=== PATIENT | male | born 1955 | race Caucasian/White ===

== ENCOUNTER 2017-07-11 06:59 | Outpatient (CLI) | payer BC ==
[~2017-07-11] VITALS: Ht 180.3 cm; Wt 97.7 kg
--- NOTE | ~2017-07-11 | HEMODYNAMI ---
PATIENT:CHANTEL BRIZUELA MEDICAL RECORD: [id number] : 57 LOCATION:[facility] ADMISSION DATE: 07/11/17 Generatedon:07/11/201710:46 Patient name: CHANTEL BRIZUELA Patient #: [id number] SSN: : 1955 Date of study: 07/11/2017 Page: Of Hemodynamic Procedure Report Patient Data Patient Demographics Procedure consent was obtained First Name: CHANTEL Gender: Male Last Name: CHATA : 1955 [facility] Initial: D Age: 62 year(s) Patient #: [id number] Race: Unknown Additional ID: [id number] Contact details Address: [address] [place] [address] State: [place] City: [facility] Zip code: [address] Past Medical History Allergies Allergen Reaction Date Comments Reported Other allergy 07/11/2017 Niacin, Atorvastatin. Admission Admission Data Admission Date: 07/11/2017 Admission Time: 6:59 Admit Source: Other Lab Results Lab Result Date: 07/11/2017 Lab Result Time: 8:14 Biochemistry Name Units Result Min Max BUN mg/dl 13 --(--*-)-- 7 18 Creatinine mg/dl 1.3 --(---*)-- 0.6 1.3 CBC Name Units Result Min Max Hematocrit % 39 *-(----)-- 42 54 Hemoglobin g/dl 13.2 -*(----)-- 13.5 17.5 Procedure Procedure Types Cath Procedure Diagnostic Procedure LHC [facility] w/Coronaries Sedation Charges Moderate Sedation up to 45 minutes PCI Procedure Coronary Stent Coronary Stent Initial Procedure Description Procedure Date Procedure Date: 07/11/2017 Procedure Start Time: 9:52 Procedure End Time: 10:39 Procedure Staff Name Function Chinmay St MD Performing Physician Alexsander Olguin RT Monitor Ashley Arriaga RT Scrub Nasim Hoff RN Nurse Procedure Data Cath Procedure Fluoroscopy Diagnostic fluoroscopy Total fluoroscopy Time: time: 11.5 min 11.5 min Diagnostic fluoroscopy Total fluoroscopy dose: dose: 1463 mGy 1463 mGy Contrast Material Contrast Material Type Amount (ml) Isovue 300 148 Entry Location Entry Primary Successful Side Size Upsize Upsize Entry Closure Jimenez ccessful Closure Location (Fr) 1 (Fr) 2 (Fr) Remarks Device Remarks Radial Right 6 Fr Mechanical artery Short Compression Femoral Right 5 Fr 6 Fr Exoseal artery Short Estimated blood loss: 10 ml Diagnostic catheters Device Type Used For End Catheter Placement DIAGNOSTIC Tremayne 110cm Procedure 5Fr catheter ([id number]) MULTIPACK JL 4.0 5Fr Procedure catheter MULTIPACK 3DRC 5Fr Procedure catheter MULTIPACK Pigtail 5 Fr Procedure catheter Procedure Complications No complications Procedure Medications Medication Administration Route Dosage 0.9% NaCl I.V. 100 ml/hr Oxygen etCO2 Nasal cannula 2 l/min Heparin Flush Bag added to field 2 bags (1000units/500ml NS) Lidocaine 2% added to field 20 Radial Cocktail added to field 1 syringe (Verapomil 2mg/Nitro 400mcg/Heparin 1500units) Versed I.V. 1 mg Fentanyl I.V. 50 mcg Radial Cocktail I.A. 1 syringe (Verapomil 2mg/Nitro 400mcg/Heparin 1500units) Versed I.V. 0.5 mg Fentanyl I.V. 25 mcg Heparin Bolus I.V. 9700 units Brilinta P.O. 180 mg Hemodynamics Rest HGB: 13.2 (g/dl) Heart Rate: 52 (bpm) Pressure Samples Time Site Value (mmHg) Purpose Heart Use Rate(bpm) 10:04 LV 114/15,29 Snapshot 54 10:04 AO 107/57(77) Pullback 53 10:04 LV 187/-12,150 Pullback 53 Gradients Valve Time Site 1 Site 2 Mean SEP/DFP Peak To Heart Use (mmHg) (sec/min) Peak Rate (mmHg) (bpm) Aortic 10:04 LV AO 23 24 80 53 187/-12,150 107/57(77) Calculations Valve P-P Mean Valve Index Valve Source Name Gradient Area Flow (cm2) Aortic 80 23 80 23 Snapshots Pre Cath Intra NCS Post Cath Vital Signs Time Heart Resp SPO2 etCO2 NIBP (mmHg) Rhythm Pain Sedation Rate (ipm) (%) (mmHg) Status Level (bpm) 9:48:47 49 24 99 42.6 130/75(106) NSR 0 (11) 10(A) , No pain 9:54:02 50 17 98 47.1 104/67(83) NSR 0 (11) 10(A) , No pain 9:58:35 51 16 94 40.4 99/66(89) NSR 0 (11) 10(A) , No pain 10:03:11 53 19 94 42.6 105/67(94) NSR 0 (11) 9(A) , No pain 10:07:50 52 22 94 43.4 110/68(91) NSR 0 (11) 9(A) , No pain 10:12:28 54 16 99 42.6 112/60(81) NSR 0 (11) 9(A) , No pain 10:17:07 56 24 99 41.9 98/68(83) NSR 0 (11) 9(A) , No pain 10:21:43 54 15 100 42.6 107/68(97) NSR 0 (11) 9(A) , No pain 10:26:18 54 16 100 41.1 106/70(87) NSR 0 (11) 9(A) , No pain 10:30:54 54 19 100 40.4 112/74(93) NSR 0 (11) 9(A) , No pain 10:35:33 56 15 100 41.9 123/75(99) NSR 0 (11) 10(A) , No pain Medications Time Medication Route Dose Verified Delivered Reason Not es Effectiveness by by 9:45:56 0.9% NaCl I.V. 100 Nasim Nasim Per physician ml/hr Kavya Hoff RN RN 9:46:06 Oxygen etCO2 2 l/min Nasim Nasim Per physician Nasal Shainaigan Kavya cannula RN RN 9:46:19 Heparin Flush added 2 bags Nasim Nasim used for Bag to Lorigan Lorigan procedure (1000units/500ml field LANGE RN NS) 9:46:31 Lidocaine 2% added 20ml Nasim Nasim for local to vial Lorigan Lorigan anesthetic RN RN 9:46:47 Radial Cocktail added 1 Nasim Nasim used for (Verapomil to syringe Lorigan Lorigan procedure 2mg/Nitro RN RN 400mcg/Heparin 1500units) 9:48:27 Versed I.V. 1 mg Nasim Nasim for sedation Kavya Hoff RN RN 9:48:37 Fentanyl I.V. 50 mcg Nasim Nasim for sedation Kavya Hoff RN RN 9:54:23 Radial Cocktail I.A. 1 Nsaim Chinmay for (Verapomil syringe Kavya St MD vasodilation 2mg/Nitro RN 400mcg/Heparin 1500units) 9:54:33 Versed I.V. 0.5 mg Nasim Nasim for sedation Kavya Hoff RN RN 9:54:40 Fentanyl I.V. 25 mcg Nasim Nasim for sedation Kavya Hoff RN RN 10:08:27 Heparin Bolus I.V. 9,700 Nasim Nasim for units Kavya Hoff anticoagulation RN RN 10:40:01 Brilinta P.O. 180 mg Nasim Nasim for Kavya Hoff antiplatelet RN RN therapy Procedure Log Time Note 9:23:09 Informed consent obtained and on chart 9:23:13 Admit Source: Other 9:23:26 Diagnostic Cath status Elective 9:23:27 Nasim Hoff RN sent for patient. Start room use. 9:23:29 Time tracking: Regular hours (M-F 7:00 - 5:00) 9:23:33 Plan of Care:Hemodynamics will remain stable., Cardiac rhythm will remain stable., Comfort level will be maintained., Respiratory function will remain adequate., Patient/ family verbilizes understanding of procedure., Procedure tolerated without complication., Recovers from procedure without complications.. 9:23:58 H&P Date Dictated: 07/04/2017 Within 30 days and on chart., H&P Addendum completed by physician on day of procedure. (MUST COMPLETE FOR ALL OUTPATIENTS). 9:30:31 Patient received from Pre/Post Procedure Room to CCL 1 Alert and oriented. Tansferred to table in Supine position. 9:30:32 Warm blankets applied, and jazmín hugger turned on for patient comfort. 9:30:32 Correct patient and procedure confirmed by team. 9:30:33 ECG and BP/O2 sat monitors applied to patient. 9:30:35 Pre-procedure instructions explained to patient. 9:30:35 Pre-op teaching completed and patient verbalized understanding. 9:30:36 Family in waiting room. 9:30:37 Patient NPO since Midnight. 9:31:30 Patient allergic to Other allergyNiacin, Atorvastatin. 9:31:32 Is the patient allergic to Iodine/contrast media? No. 9:32:04 Is patient on blood thinner?No 9:32:05 Patient diabetic? Yes. 9:32:08 If diabetic: On Metformin? Yes 9:33:36 Lab Result : Hemoglobin 13.2 g/dl 9:33:36 Lab Result : Creatinine 1.3 mg/dl 9:33:36 Lab Result : BUN 13 mg/dl 9:33:36 Lab Result : Hematocrit 39 % 9:45:56 0.9% NaCl 100 ml/hr I.V. was administered by Nasim Hoff RN; Per physician; 9:46:06 Oxygen 2 l/min etCO2 Nasal cannula was administered by Nasim Hoff RN; Per physician; 9:46:19 Heparin Flush Bag (1000units/500ml NS) 2 bags added to field was administered by Nasim Hoff RN; used for procedure; 9:46:31 Lidocaine 2% 20ml vial added to field was administered by Nasim Hoff RN; for local anesthetic; 9:46:47 Radial Cocktail (Verapomil 2mg/Nitro 400mcg/Heparin 1500units) 1 syringe added to field was administered by Nasim Hoff RN; used for procedure; 9:47:05 If on Metformin: Last Dose? 07/11/2017 9:47:08 Previous problem with sedation/anesthesia? No ? 9:47:09 Snore? Yes 9:47:19 Sleep apnea? No 9:47:21 Deviated septum? No 9:47:21 Opens mouth fully? Yes 9:47:22 Sticks out tongue? Yes 9:47:24 Airway obstruction? No ? 9:47:26 Dentures? No ? 9:47:31 Patient pain scale 0/10 ?. 9:47:35 IV patent on arrival in left forearm with 0.9% NaCl at [facility]. 9:47:36 Lab results completed and on chart. 9:47:40 Use device set Radial Dx or PCI 9:47:41 ACIST Syringe (65822) opened to sterile field. 9:47:41 Medline Cath Pack ([id number]) opened to sterile field. 9:47:42 Bag Decanter (2002) opened to sterile field. 9:47:43 ACIST Hand Control (32389) opened to sterile field. 9:47:43 ACIST Manifold (68596) opened to sterile field. 9:47:44 Tegaderm 4 x 4 (1626W) opened to sterile field. 9:47:44 MBrace Wrist Support ([id number]) opened to sterile field. 9:47:46 DIAGNOSTIC WIRE .035 260cm J wire (685049) opened to sterile field. 9:47:48 SHEATH 6Fr Prelude Radial ([id number]) opened to sterile field. 9:47:52 Vital chart was started 9:47:54 Baseline sample Acquired. 9:47:56 Rhythm: sinus rhythm 9:47:57 Full Disclosure recording started 9:48:02 Right Radial & Right Groin area was prepped with chlora-prep and draped in sterile fashion 9:48:03 Alarms reviewed by R. N. 9:48:03 Sharps counted by scrub and verified by R.N. 9:48:04 Physician arrived 9:48:04 --------ALL STOP TIME OUT------ 9:48:06 Final Timeout: patient, procedure, and site verified with staff and physician. All members of the team are in agreement. 9:48:07 Right Radial & Right Groin site verified by team. 9:48:11 Physical assessment completed. ASA score P 2 - A patient with mild systemic disease as per Chinmay St MD. 9:48:13 Sedation plan: IV Moderate Sedation Medication:Versed, Fentanyl 9:48:27 Versed 1 mg I.V. was administered by Nasim Hoff RN; for sedation; 9:48:37 Fentanyl 50 mcg I.V. was administered by Nasim Hoff RN; for sedation; 9:51:58 Procedure started. 9:52:02 Local anesthetic to right radial artery with Lidocaine 2% by Chinmay St MD.INITIAL ACCESS ONLY 9:52:07 A 6 Fr Short sheath was inserted into the Right Radial artery 9:52:58 Zero performed for pressure channel P1 9:54:23 Radial Cocktail (Verapomil 2mg/Nitro 400mcg/Heparin 1500units) 1 syringe I.A. was administered by Chinmay St MD; for vasodilation; 9:54:33 Versed 0.5 mg I.V. was administered by Nasim Hoff RN; for sedation; 9:54:40 Fentanyl 25 mcg I.V. was administered by Nasim Hoff RN; for sedation; 9:54:54 A DIAGNOSTIC Tremayne 110cm 5Fr catheter (283895) was advanced over the wire and used for Procedure. 9:55:53 SHEATH 5Fr Prelude ([id number]) opened to sterile field. 9:55:57 Use device set Multipack Set 9:55:59 DIAGNOSTIC Multipack 5Fr catheter set (SO0042) opened to sterile field. 9:56:29 Unable to advance catheter due to radial loop. Catheter removed and moving to femoral approach. 9:56:44 Local anesthetic to right femoral artery with Lidocaine 2% by Chinmay St MD.ADDITIONAL ACCESS 9:56:54 A 5 Fr sheath was inserted into the Right Femoral artery 9:57:31 TR BAND Standard ([id number]) opened to sterile field. 9:58:14 A MULTIPACK JL 4.0 5Fr catheter was advanced over the wire and used for Procedure. 9:59:38 LCA angiography performed. 10:00:18 Catheter exchanged over wire. 10:00:51 A MULTIPACK 3DRC 5Fr catheter was advanced over the wire and used for Procedure. 10:01:33 RCA angiography performed. 10:02:24 Catheter exchanged over wire. 10:02:30 A MULTIPACK Pigtail 5 Fr catheter was advanced over the wire and used for Procedure. 10:03:12 TUBING High Pressure Extension Tubing (St) ([id number]) opened to sterile field. 10:03:12 BMW 300cm Eitzen 2 J wire ([id number]) opened to sterile field. 10:03:13 INFLATOR Merit BasixCompak (VW1921) opened to sterile field. 10:03:14 SHEATH Prelude 6Fr 0.035 (JES-0W-14-035) opened to sterile field. 10:04:21 LV gram done using WILSON 10:04:24 Injector settings: Ml/sec: 10, Volume: 20, 10:04:27 EF : 55 % 10:04:45 GUIDE 6FR XBLAD 3.5 catheter (60895635) opened to sterile field. 10:04:49 Catheter removed. 10:04:54 Sheath upsized to a 6 Fr Short. 10:05:02 6 Fr xblad 3.5 guide catheter was inserted over the wire 10:08:27 Heparin Bolus 9,700 units I.V. was administered by Nasim Hoff RN; for anticoagulation; 10:09:38 bmw wire advanced. 10:11:35 Wire advanced across lesion. 10:26:19 CHOICE PT Extra Support J 300cm guide wire ([id number]) opened to sterile field. 10:32:27 choice pt wire advanced as baljeet wire 10:32:46 choie pt Wire removed. 10:32:47 Place stent Inflation Number: 1 A RG OTW 3.5 x 22 stent ([id number]) was prepped and advanced across the Prox LAD. The stent was deployed at 12 BRUNILDA for 0:10 (min:sec). 10:35:15 Stent catheter was removed intact over wire. 10:35:15 Wire removed. 10:35:16 Guide catheter removed. 10:35:20 EXOSEAL 6Fr (EX600) opened to sterile field. 10:35:34 Sheath removed intact; hemostasis achieved with Exoseal to the Right Femoral artery. 10:35:39 Sheath removed intact; hemostasis achieved with Mechanical Compression to the Right Radial artery. 10:35:40 Procedure ended.(Physican Out) 10:37:17 Fluoroscopy time 11.50 minutes. 10:37:23 Fluoroscopy dose: 1463 mGy 10:37:23 Flurop Dose total: 1463 10:37:27 Contrast amount:Isovue 300 148ml. 10:37:28 Sharps counted by scrub and verified by R.N. 10:37:31 TR band inflated with 12cc of air. 10:37:32 Insertion/operative site no bleeding no hematoma. 10:37:36 Post-op/insertion site Right Femoral artery dressed using a 4 x 4 and Tegaderm. 10:37:40 Post right femoral artery:stable, soft, clean and dry 10:37:42 Post Procedure Pulses reassessed and unchanged 10:37:44 Post-procedure physical assessment completed. ASA score P 2 - A patient with mild systemic disease as per Chinmay St MD. 10:37:46 Post procedure rhythm: unchanged. 10:37:48 Estimated blood loss: 10 ml 10:37:51 Post procedure instruction explained to patient.Patient verbalizes understanding. 10:37:52 Patient needs reinforcement of post procedure teaching. 10:38:05 Procedure type changed to Cath procedure, Diagnostic procedure, LHC, LHC w/Coronaries, Sedation Charges, Moderate Sedation up to 45 minutes, PCI procedure, Coronary Stent, Coronary Stent Initial 10:39:21 Procedure and supply charges have been captured, reviewed, submitted and are correct. 10:39:23 Procedure Complication : No complications 10:39:25 Vital chart was stopped 10:39:26 See physician's report for complete and final results. 10:39:27 Report given to Pre/Post Procedure Room. 10:39:29 Patient transfered to Pre/Post Procedure Room with Stretcher. 10:39:32 Procedure ended. 10:39:32 Full Disclosure recording stopped 10:39:48 End room use (Document Last) 10:40:01 Brilinta 180 mg P.O. was administered by Nasim Hoff RN; for antiplatelet therapy; 10:43:00 FEMSTOP Gold ([id number]) opened to sterile field. 10:46:10 Femstop placed over the right femoral artery at 145 mmHg. Hemostasis achieved. Intervention Summary Intervention Notes Time ActionType Lesion and Equipment Action# Pressure Duration Attributes Used 10:32:47 Place stent Prox LAD RG OTW 3.5 1 12 00:10 x 22 stent ([id number]) Device Usage Item Name Manufacture Quantity Catalog Number Hospital Part Current Minimal Lot# / Charge Number Stock Stock Serial# Code ACIST Syringe Acist 1 19612 034144 933023 638772 20 (70748) Medical [employer] Inc Medline Cath Cardinal 1 [id number] 407686 76170 056540 5 Pack Health ([id number]) Bag Decanter Microtek 1 2001S 520303 45997 731655 5 () Medical Inc. ACIST Hand Acist 1 73486 859112 365965 416434 5 Control (73974) [employer] Inc ACIST Manifold Acist 1 61043 528354 484824 798581 5 (02995) [employer] Systems Inc Tegaderm 4 x 4 3M 1 1626W 228892 413028 416258 5 (1626W) MBrace Wrist Advanced 1 140-0250-00 887720 76080 366384 5 Support Vascular (298527759) Dynamics DIAGNOSTIC WIRE St Sergio 1 385985 153602 236859 848440 30 .035 260cm J wire (918816) SHEATH 6Fr Merit 1 [id number] 577021 831024 020255 5 Prelude Radial Medical ([id number]) DIAGNOSTIC Terumo 1 405023 767497 441625 707398 5 Tremayne 110cm 5Fr catheter (361227) SHEATH 5Fr Merit 1 [id number] 751697 774279 846031 5 Prelude Medical ([id number]) DIAGNOSTIC Cardinal 1 WV3865 462458 48822 217355 30 Multipack 5Fr Health catheter set (ZC2675) TR BAND Terumo 1 [id number] 166101 889844 578860 40 Standard ([id number]) MULTIPACK JL Cardinal 1 070708 5 4.0 5Fr Health catheter MULTIPACK 3DRC Cardinal 1 463922 5 5Fr catheter Health MULTIPACK Cardinal 1 111033 5 Pigtail 5 Fr Health catheter TUBING High Merit 1 [id number] 021367 25326 047417 10 Pressure Medical Extension Tubing (St) (GQ9945I) BMW 300cm Chapa 1 [id number] 567597 308471 831468 5 Eitzen 2 J Vascular wire (6102016T) INFLATOR Merit Merit 1 TI2724 514128 098554 758638 15 BasixCompak Medical (JR0740) SHEATH Prelude Merit 1 EGE-4Z-10-35 147417 7436520 478832 5 6Fr 0.035 Medical (AUN-4U-50-035) GUIDE 6FR XBLAD Cardinal 1 66240351 272452 431348 340643 10 3.5 catheter Health (63296455) CHOICE PT Extra Paradise 1 [id number] 128481 209161 713612 5 Support J 300cm Scientific guide wire (7989332V6) RG OTW 3.5 x Medtronic 1 [id number] 765415 1445402 495837 5 [id number] 22 stent ([id number]) EXOSEAL 6Fr Cardinal 1 EX600 873796 050445 807747 10 (EX600) Health FEMSTOP Gold St Sergio 1 Q70112 948560 541792 773324 5 ([id number]) Signature Audit [place] Stage Time Signature Unsigned Intra-Procedure 07/11/2017 Alexsander Olguin 10:46:34 AM RT(R) Signatures Monitor : Alexsander Olguin RT Signature : Date : Time : [facility] [address] [place] [address]
[2017-07-11] MEDS ORDERED: MIRAPEX0.5 MG PO (07:46)
[2017-07-11] MEDS ORDERED: ARTANE2 MG PO (07:46)
[2017-07-11] MEDS ORDERED: CRESTOR20 MG PO (07:47)
[2017-07-11] MEDS ORDERED: SONATA10 MG PO (07:47)
[2017-07-11] MEDS ORDERED: LOPRESSOR25 MG PO (07:47)
[2017-07-11] MEDS ORDERED: XANAX1 MG PO (07:48)
[2017-07-11] MEDS ORDERED: NUPLAZID PO (07:48)
[2017-07-11] MEDS ORDERED: GLUCOPHAGE1000 MG PO (07:48)
[2017-07-11] MEDS ORDERED: LISINOPRIL10 MG PO (07:49)
[2017-07-11] MEDS ORDERED: CELECOXIB PO (07:49)
[2017-07-11] MEDS ORDERED: LEXAPRO10 MG PO (07:50)
[2017-07-11] MEDS ORDERED: JANUVIA100 MG PO (07:50)
[2017-07-11] MEDS ORDERED: FISH OIL 1,0001 CA1 PO (07:51)
[2017-07-11] MEDS ORDERED: HYDROCODON-ACE1 EAC9 PO (07:51)
[2017-07-11] MEDS ORDERED: ZANAFLEX4 MG PO (07:51)
[2017-07-11] MEDS ORDERED: MAG-OXIDE400 MG PO (07:52)
[2017-07-11] MEDS ORDERED: BAYER CHEWABLE81 MG PO (07:52)
[2017-07-11 08:12] VITALS: BP 138/67; Ht 180.3 cm; Wt 97.7 kg
[2017-07-11 08:18] LABS: BASOPHILS 0.3 % (0-2); HEMOGLOBIN 13.2 g/dL (13.5-17.5); IMMATURE GRANULOCYTES 0.3 % (0-5); LYMPHOCYTES 20.7 % (15-50); MCH 28.9 pg (26.0-34.0); MCHC 33.8 g/dL (31.0-37.0); MCV 85.3 fL (80.0-100.0); MEAN PLATELET VOLUME 9.3 fL (7.4-10.4); MONOCYTES 7.9 % (2-11); NEUTROPHILS 68.8 % (40-80); PLATELET COUNT 167 10x3/uL (130-400); RBC 4.57 10x6/uL (4.20-6.10); RDW 13.8 % (11.5-14.5)
[2017-07-11 08:36] LABS: ANION GAP 14.2 mmol/L (8-16); CALCIUM 8.9 mg/dL (8.5-10.1); CARBON DIOXIDE 25.3 mmol/L (21.0-32.0); CREATININE - SERUM 1.3 mg/dL (0.6-1.3); POTASSIUM - SERUM 4.5 mmol/L (3.5-5.1)
[2017-07-11] MEDS ORDERED: BRILINTA90 MG PO (11:08)
== END 2017-07-11 15:00 | disposition home or self-care (01) ==
LOC: D.CATH 06:59
PROVIDERS: Internal Medicine Cardiovascular Disease
DX: I25.119 Atherosclerotic heart disease of native coronary artery with unspecified angina pectoris (principal); Z01.812 Encounter for preprocedural laboratory examination